=== PATIENT | female | born 2000 | race Hispanic/Latino ===

== ENCOUNTER 2023-07-17 17:59 | Emergency (ER) | payer OTHER, SELFPAY ==
--- OUTSIDE RECORDS SUMMARY | 2023-07-17 18:01 | XMS REPORT | Continuity of Care Document ---
:2000 Author Organization [facility] t Address [address] [place] [id number] Care Team Providers Name Role Phone Unavailable Unavailable Unavailable Problems This patient has no known problems. Allergies, Adverse Reactions, Alerts This patient has no known allergies or adverse reactions. Medications This patient has no known medications. Procedures This patient has no known procedures. Results This patient has no known results.
[2023-07-17 20:04] LABS: Absolute Lymphocytes (CBC) 0.8 K/uL (0.7-4.9); Hematocrit 37.1 % (36.0-45.0); Lymphocytes % 9.2 % (15.3-44.8); MCV 86.6 fL (80-100); MPV 8.8 fL (7.6-11.3); Platelets 202 thou/uL (152-406); RBC Red Blood Cell Count 4.28 M/uL (3.86-4.86)
[2023-07-17 20:13] LABS: Specific Gravity > 1.030 (1.005-1.030)
[2023-07-17 20:19] LABS: Specific Gravity > 1.030 (1.005-1.030); Urine Bacteria None Seen /HPF (<20); Urine Bilirubin NEGATIVE (Negative); Urine Blood Trace (Negative); Urine Clarity Clear (Clear); Urine Color Yellow (Yellow); Urine Crystals Unidentified Few /HPF (None Seen); Urine Glucose NEGATIVE (Negative); Urine Mucus 2+ /HPF (None Seen); Urine Protein 1+ (Negative); Urine RBC <5 /HPF (None Seen); Urine Urobilinogen Normal (Normal); Urine pH 5.5 (5.0-7.0)
[2023-07-17] MEDS ORDERED: ONDANSETRON 4 MG/2 ML VIAL ONE (20:36)
[2023-07-17] MEDS ORDERED: NA CHLORIDE 0.9% 1,000 ML ONE (20:36)
[2023-07-17] MEDS ORDERED: KETOROLAC 30 MG/ML INJ ONE (20:36)
[2023-07-17 21:01] LABS: Bilirubin Total 0.4 mg/dL (0.2-1.0); Potassium 3.5 mEq/L (3.5-5.1); Protein, Total 7.8 g/dL (6.4-8.2)
--- NOTE | 2023-07-17 22:07 | RAD REPORT ---
EXAM DESCRIPTION: CT - Abdomen Pelvis W Contrast - 07/17/2023 9:25 pm CLINICAL HISTORY: ABD PAIN COMPARISON: No comparisons TECHNIQUE: Thin cut axial CT imaging of the abdomen and pelvis was performed following intravenous a dministration of 95 mL Isovue 300. Multiplanar reformats were generated and reviewed. All CT scans are performed using dose optimization technique as appropriate and may include automated exposure control or mA/KV adjustment according to patient size. FINDINGS: No suspicious findings in the lung bases. The liver, spleen, adrenal glands, and pancreas show no suspicious findings. Gallbladder and biliary tree are also without suspicious finding. Symmetric renal function is seen with no hydronephrosis or suspicious renal mass. No dilated bowel loops or bowel wall thickening. Small volume free pelvic ascites. Ovoid collapsed cy stic lesion in the left adnexal region with some thickened wall enhancement measuring 2.4 cm. No free air, fluid collections, or inflammatory stranding. No hernia, mass or bulky lymphadenopathy. The uri nary bladder is without significant finding. No suspicious bony findings. IMPRESSION: No acute intra-abdominal process. Small volume free pelvic ascites, probably physiologic. Probable left adnexal collapsed cyst/follicle .
--- NOTE | 2023-07-17 22:13 | EDPHYS ---
Physician Documentation [facility] Name: Ivory Carreon Age: 22 yrs Sex: Female : 2000 Arrival Date: 07/17/2023 Time: 17:59 Bed 24 Private MD: ED Physician Scot Mota HPI: 07/17 22:27 This 22 yrs old Female presents to ER via Ambulatory with complaints of kb Abdominal Pain, Nausea/Vomiting/Diarrhea. 22:27 The patient presents with abdominal pain in the lower abdomen. Onset: The kb symptoms/episode began/occurred this morning. The symptoms do not radiate. Associated signs and symptoms: Pertinent positives: nausea and vomiting, diarrhea. The symptoms are described as constant. Modifying factors: The symptoms are alleviated by nothing, the symptoms are aggravated by nothing. Severity of pain: At its worst the pain was moderate in the emergency department the pain is unchanged. The patient has not experienced similar symptoms in the past. The patient has not recently seen a physician. Pt reports n/v/d that started this morning. States she hasn't been able to hold anything down and her low back started hurting. States she has some burning with urination now as well. CAT DOG OR OTHER PET GROOMER: 22:32 Not cm10 Historical: - Allergies: 18:12 No Known Allergies; mb9 - Home Meds: 18:12 None [Active]; mb9 - PMHx: 18:12 None; mb9 - PSHx: 18:12 None; mb9 - Immunization history:: Adult Immunizations up to date. - Social history:: Smoking status: Reported history of juuling and/or vaping. ROS: 22:26 Constitutional: Negative for fever, chills, and weight loss, kb 22:26 Abdomen/GI: Positive for abdominal pain, nausea, vomiting, and diarrhea, 22:26 All other systems are negative, 22:28 Back: Positive for pain at rest, kb 22:28 : Positive for burning with urination, Exam: 22:26 Constitutional: This is a well developed, well nourished patient who is awake, alert, kb and in no acute distress. Head/Face: Normocephalic, atraumatic. ENT: Moist Mucous membranes Cardiovascular: Regular rate Respiratory: Respirations even and unlabored. No increased work of breathing. Talking in full sentences Abdomen/GI: Soft, non-tender. No distention Skin: Warm, dry with normal turgor. Normal color. MS/ Extremity: Pulses equal, no cyanosis. Neurovascular intact. Full, normal range of motion. Neuro: Awake and alert, GCS 15, oriented to person, place, time, and situation. Moves all extremities. Normal gait. 22:27 Back: pain, that is moderate, of the low back area, kb Vital Signs: 18:09 BP 105 / 73; Pulse 110; Resp 18; Temp 98.6; Pulse Ox 100% ; Weight 49.9 kg; Height 5 mb9 ft. 2 in. ; Pain 9/10; 22:32 BP 116 / 67; Pulse 90; Resp 16; Pulse Ox 100% on R/A; Pain 4/10; cm10 18:09 Body Mass Index 20.12 (49.90 kg, 157.48 cm) mb9 18:09 Pain Scale: Adult mb9 22:32 Pain Scale: Adult cm10 MDM: 18:05 Patient medically screened. kb 22:26 Differential diagnosis: appendicitis, diverticulitis, non-specific abd pain, kb Pyelonephritis, urinary tract infection. Data reviewed: vital signs, nurses notes. Counseling: I had a detailed discussion with the patient and/or guardian regarding the historical points, exam findings, and any diagnostic results supporting the discharge/admit diagnosis, lab results, radiology results, the need for outpatient follow up, a family practitioner, to return to the emergency department if symptoms worsen or persist or if there are any questions or concerns that arise at home. 07/17 18:34 Order name: CBC with Diff; Complete Time: 20:07 kb 07/17 18:34 Order name: CMP; Complete Time: 21:06 kb 07/17 18:34 Order name: Lipase; Complete Time: 21:06 kb 07/17 18:34 Order name: Test, Urine; Complete Time: 20:22 kb 07/17 18:34 Order name: Urinalysis w/ reflexes; Complete Time: 20:20 kb 07/17 18:34 Order name: CT Abd/Pelvis - IV Contrast Only; Complete Time: 22:08 kb 07/17 18:34 Order name: IV Saline Lock; Complete Time: 19:55 kb 07/17 18:34 Order name: Labs collected and sent; Complete Time: 19:55 kb Administered Medications: 20:27 Drug: Ondansetron IVP 4 mg IVP once; over 2 minutes Route: IVP; Site: right antecubital;cm10 21:21 Follow up: Response: No adverse reaction cm10 20:27 Drug: Ketorolac IVP 15 mg IVP once Route: IVP; Site: right antecubital; cm10 21:21 Follow up: Response: No adverse reaction cm10 20:28 Drug: NS 0.9% IV 1000 ml IV at 1000 ml once Route: IV; Rate: 1000 ml; Site: right cm10 antecubital; 21:21 Follow up: Response: No adverse reaction; IV Status: Completed infusion; IV Intake: cm10 1000ml Disposition: 07/18 10:36 Co-signature as Attending Physician, Scot Mota MD I reviewed the patient's care rt provided by the Advanced Practice Provider and agree with the diagnosis and treatment plan. Disposition Summary: 07/17/23 22:12 Discharge Ordered Notes: Location: Home kb Condition: Stable kb Diagnosis - Nausea with vomiting, unspecified kb - Diarrhea, unspecified kb Followup: kb - With: Emergency Department - When: As needed - Reason: Worsening of condition Followup: kb - With: Private Physician - When: 2 - 3 days - Reason: Recheck today's complaints, Continuance of care, Re-evaluation by your physician Discharge Instructions: - Discharge Summary Sheet kb - Food Choices to Help Relieve Diarrhea, Adult kb - Viral Gastroenteritis, Adult, [id number] kb Forms: - Medication Reconciliation Form kb - Thank You Letter kb - Antibiotic Education kb - Prescription Opioid Use kb - Patient Portal Instructions kb - Leadership Thank You Letter kb Prescriptions: - ondansetron 4 mg Oral Tablet,disintegrating - take 1 tablet ORAL route every 6 hours As needed; 12 tablet; Refills: 0, kb Product Selection Permitted Signatures: Dispatcher [employer] EDMS Sayda Jewell FNP-C FNP-Ckb Breneman, Mary Beth RN RN mb9 Scot Moat MD MD rt Hermelinda Motley RN RN cm10 Corrections: (The following items were deleted from the chart) 07/17 22:29 22:26 Differential diagnosis: appendicitis, diverticulitis, non-specific abd pain, kb kb 22:29 22:26 Abdomen/GI: Positive for abdominal pain, nausea, vomiting, and diarrhea, kb kb
--- NOTE | 2023-07-17 22:13 | ER ---
Nurse's Notes [facility] Name: Ivory Carreon Age: 22 yrs Sex: Female : 2000 Arrival Date: 07/17/2023 Time: 17:59 Bed 24 Private MD: Diagnosis: Nausea with vomiting, unspecified;Diarrhea, unspecified Presentation: 07/17 18:09 Chief complaint: Patient states: "Around 4am, I woke up feeling nauseous. Ever since mb9 then, I've been vomiting and having diarrhea. Now my lower back hurts really bad and can't lay down in a comfortable position. It stings when I urinate now. I feel like I have the chills now". Coronavirus screen: Vaccine status: Patient reports receiving the 2nd dose of the covid vaccine. Ebola Screen: No symptoms or risks identified at this time. Initial Sepsis Screen: Does the patient meet any 2 criteria? No. Patient's initial sepsis screen is negative. Does the patient have a suspected source of infection? No. Patient's initial sepsis screen is negative. Risk Assessment: Do you want to hurt yourself or someone else? Patient reports no desire to harm self or others. Onset of symptoms was July 17, 2023. 18:09 Method Of Arrival: Ambulatory mb9 18:09 Acuity: BJ 3 mb9 Triage Assessment: 18:12 General: Appears uncomfortable, Behavior is calm, cooperative, appropriate for age. mb9 Pain: Complains of pain in back Pain does not radiate. Pain currently is 9 out of 10 on a pain scale. Quality of pain is described as throbbing. EENT: No signs and/or symptoms were reported regarding the EENT system. Neuro: Flowers Agitation-Sedation Scale (RASS): 0 - Alert and Calm. Neuro: Level of Consciousness is awake, alert, obeys commands, Oriented to person, place, time, situation, Appropriate for age. Cardiovascular: Patient's skin is warm and dry. Respiratory: Airway is patent Respiratory effort is even, unlabored, Respiratory pattern is regular, symmetrical. GI: Reports diarrhea, nausea, vomiting. : Reports burning with urination. Derm: Skin is pink, warm \\T\\ dry. Musculoskeletal: Range of motion: intact in all extremities. LOG SNAKER: 22:32 Not cm10 Historical: - Allergies: 18:12 No Known Allergies; mb9 - Home Meds: 18:12 None [Active]; mb9 - PMHx: 18:12 None; mb9 - PSHx: 18:12 None; mb9 - Immunization history:: Adult Immunizations up to date. - Social history:: Smoking status: Reported history of juuling and/or vaping. Screenin:16 [facility] ED Fall Risk Assessment (Adult) History of falling in the last 3 months, cm10 including since admission No falls in past 3 months (0 pts) Confusion or Disorientation No (0 pts) Intoxicated or Sedated No (0 pts) Impaired Gait No (0 pts) Mobility Assist Device Used No (0 pt) Altered Elimination No (0 pt) Score/Fall Risk Level 0 - 2 = Low Risk Oriented to surroundings, Maintained a safe environment, Hourly rounding (assess needs \\T\\ fall precautionary measures) done. Abuse screen: Denies threats or abuse. Denies injuries from another. Nutritional screening: No deficits noted. Tuberculosis screening: No symptoms or risk factors identified. Assessment: 20:16 Reassessment: Patient appears in no apparent distress at this time. Patient and/or cm10 family updated on plan of care and expected duration. Pain level reassessed. Patient is alert, oriented x 3, equal unlabored respirations, skin warm/dry/pink. Vital Signs: 18:09 BP 105 / 73; Pulse 110; Resp 18; Temp 98.6; Pulse Ox 100% ; Weight 49.9 kg; Height 5 mb9 ft. 2 in. ; Pain 9/10; 22:32 BP 116 / 67; Pulse 90; Resp 16; Pulse Ox 100% on R/A; Pain 4/10; cm10 18:09 Body Mass Index 20.12 (49.90 kg, 157.48 cm) mb9 18:09 Pain Scale: Adult mb9 22:32 Pain Scale: Adult cm10 ED Course: 18:03 Patient arrived in ED. im 18:05 Sayda Jewell FNP-C is PHCP. kb 18:05 Scot Mota MD is Attending Physician. kb 18:12 Triage completed. mb9 18:12 Arm band placed on. mb9 19:22 Hermelinda Motley, SONIDO is Primary Nurse. cm10 19:55 CBC with Diff Sent. cm10 19:55 CMP Sent. cm10 19:55 Lipase Sent. cm10 19:55 Test, Urine Sent. cm10 19:55 Urinalysis w/ reflexes Sent. cm10 19:55 Initial lab(s) drawn, by me, sent to lab. Urine collected: clean catch specimen. cm10 Inserted saline lock: 20 gauge in right antecubital area, using aseptic technique. Blood collected. 20:16 Patient has correct armband on for positive identification. Bed in low position. Call cm10 light in reach. Provided Education on: ER process and procedures. . 21:25 CT Abd/Pelvis - IV Contrast Only In Process Unspecified. EDMS 21:28 Patient moved back from CT. cm10 22:33 No provider procedures requiring assistance completed. IV discontinued, intact, cm10 bleeding controlled, No redness/swelling at site. Pressure dressing applied. Administered Medications: 20:27 Drug: Ondansetron IVP 4 mg IVP once; over 2 minutes Route: IVP; Site: right antecubital;cm10 21:21 Follow up: Response: No adverse reaction cm10 20:27 Drug: Ketorolac IVP 15 mg IVP once Route: IVP; Site: right antecubital; cm10 21:21 Follow up: Response: No adverse reaction cm10 20:28 Drug: NS 0.9% IV 1000 ml IV at 1000 ml once Route: IV; Rate: 1000 ml; Site: right cm10 antecubital; 21:21 Follow up: Response: No adverse reaction; IV Status: Completed infusion; IV Intake: cm10 1000ml Medication: 20:16 VIS not applicable for this client. cm10 Intake: 21:21 IV: 1000ml; Total: 1000ml. cm10 Outcome: 22:12 Discharge ordered by . cyrus 22:33 Discharged to home ambulatory, with family, cm10 22:33 Condition: good 22:33 Discharge instructions given to patient, Instructed on discharge instructions, follow up and referral plans. medication usage, Demonstrated understanding of instructions, follow-up care, medications, Prescriptions given X 1, 22:33 Patient left the ED. cm10 Signatures: Dispatcher [employer] EDNH Sayda Jewell, LEONARDO-C PERSON INVESTIGATOR-Анна Griffith RN RN mb9 Ivelisse Key Clarissa, RN RN cm10
[2023-07-18 00:54] VITALS: TEMP 98.6; O2SAT 100
[2023-07-18 01:01] VITALS: BP 116/67
== END 2023-07-17 22:33 | disposition home or self-care (01) ==
LOC: ER 17:59
DX: R11.2 Nausea with vomiting, unspecified (principal); R19.7 Diarrhea, unspecified
CPT/HCPCS: 36415; 74177; 80053; 81001; 81025; 83690; 85025; 96361; 96374; 96375; 99285; J2405; J7030; Q9967